=== PATIENT | female | born 1970 | race Caucasian/White ===

== ENCOUNTER 2020-11-16 17:09 | Emergency (ER) | payer SELFPAY ==
[2020-11-16] MEDS ORDERED: HYDROCODONE/ACETAMINOPHEN 10/325 MG TAB ONE (17:38)
== END 2020-11-16 18:05 | disposition home or self-care (01) ==
LOC: EDH 17:09
DX: S93.601A Unspecified sprain of right foot, initial encounter (principal); F32.9 Major depressive disorder, single episode, unspecified; I10 Essential (primary) hypertension; Z72.0 Tobacco use; Z88.0 Allergy status to penicillin; X58.XXXA Exposure to other specified factors, initial encounter; Y93.89 Activity, other specified; Y92.098 Other place in other non-institutional residence as the place of occurrence of the external cause; Y99.8 Other external cause status
CPT/HCPCS: 73630